=== PATIENT | female | born 1965 | race Caucasian/White ===

== ENCOUNTER → 2016-09-10 | Outpatient (REF) ==
[2015-06-11 09:00] VITALS: BP 144/90
[~2016-09-10] MED LIST: GOOD SENSE ASPI81 M1 PO; LANTUS PEN100 U/ML SC; METFORMIN500 MG PO; PERCOCET 7.5/321 TA1 PO; PRILOSEC 20MG20 MG PO; RESTORIL15 MG PO; SINGULAIR10 MG PO; VASOTEC5 MG PO; ZOCOR40 MG PO
== END ==
LOC: LAB 16:31
DX: E11.9 Type 2 diabetes mellitus without complications (principal); D50.8 Other iron deficiency anemias; E78.5 Hyperlipidemia, unspecified; R20.2 Paresthesia of skin; M85.80 Other specified disorders of bone density and structure, unspecified site

== ENCOUNTER → 2020-05-28 | Outpatient (CLI) | payer BC ==
[2015-06-11 09:00] VITALS: BP 144/90
== END ==
LOC: CARDLAB 08:03
DX: G47.19 Other hypersomnia (principal)
CPT/HCPCS: G0399